=== PATIENT | female | born 1950 | race Caucasian/White ===

== ENCOUNTER → 2016-04-25 | Outpatient (CLI) | payer SELFPAY ==
[~2016-04-25] MED LIST: Lopressor PO; Zestril,Prinivil PO
== END | disposition home or self-care (01) ==
LOC: RES 04-13 09:00
DX: I27.2 Other secondary pulmonary hypertension (principal); J45.909 Unspecified asthma, uncomplicated
CPT/HCPCS: 94060; 94726; 94729

== ENCOUNTER → 2017-01-30 | Outpatient (CLI) | payer SELFPAY | END | disposition home or self-care (01) | LOC: RAD 10:12 | DX: R06.02 Shortness of breath (principal) | CPT/HCPCS: 71020 ==

== ENCOUNTER → 2017-03-20 | Outpatient (CLI) | payer SELFPAY | END | disposition home or self-care (01) | LOC: EKG 02-20 13:00 | DX: I05.1 Rheumatic mitral insufficiency (principal); I07.1 Rheumatic tricuspid insufficiency | CPT/HCPCS: 93306 ==